=== PATIENT | female | born 1985 | race Asian ===

== ENCOUNTER 2021-08-09 15:40 | Outpatient (CLI) | payer BC | END 2021-08-09 15:41 | disposition home or self-care (01) | LOC: CSHULT 15:40 | PROVIDERS: ATTEND Family Medicine | DX: N92.6 Irregular menstruation, unspecified (principal) | CPT/HCPCS: 76856 ==

== ENCOUNTER 2023-07-14 20:58 | Inpatient (IN) | payer BC ==
[2023-07-14 22:02] LABS: #Basophils 0.08 10x3/uL (0.0-0.2); #Eosinphils 0.43 10x3/uL (0.0-0.5); #Monocytes 0.51 10x3/uL (0.0-1.1); #Neutrophils 5.44 10x3/uL (1.5-8.4); %Eosinophils 5.2 % (0.0-6.0); %Lymphocytes 21.1 % (18.0-47.0); %Monocytes 6.2 % (0.0-10.0); %Neutrophils 65.5 % (40.0-75.0); Hematocrit 35.4 % (34.9-44.5); Hemoglobin 11.9 g/dL (12.0-15.5); Mean Corpuscular HGB CONC 33.6 g/dL (32.0-36.0); Mean Corpuscular Volume 83.3 fl (81.6-98.3); Mean Platelet Volume 9.5 fl (7.4-10.4); Platelet Count 374 10x3/uL (150-450); RBC Distribution Width 13.8 % (11.5-14.5); Red Blood Cell (RBC) Count 4.25 10x6/uL (3.90-5.03); White Blood Cell (WBC) Count 8.3 10x3/uL (3.5-10.5)
[2023-07-14 22:13] LABS: ALT (SGPT) 24 U/L (8-55); AST (SGOT) 18 U/L (5-34); Albumin 3.4 g/dL (3.5-5.0); Alkaline Phosphatase 83 U/L (40-110); Anion Gap 15 mmol/L (10-20); BUN (Urea Nitrogen) 16 mg/dL (7.0-18.7); Bilirubin, Total 0.3 mg/dL (0.2-1.2); Calc. Creatinine Clearance 0 mL/min (70-130); Calcium 9.4 mg/dL (7.8-10.44); Carbon Dioxide 24 mmol/L (22-29); Chloride 106 mmol/L (98-107); Estimated GFR 120; Globulin 3.6 g/dL (2.4-3.5); Glucose 93 mg/dL (70-105); Potassium 3.9 mmol/L (3.5-5.1); Sodium 141 mmol/L (136-145)
[2023-07-14] MEDS ORDERED: Acetaminophen 500 MG TAB ONE (22:20)
[2023-07-14] MEDS ORDERED: Ketorolac Tromethamine 30 MG (1 mL) VIAL ONE (23:59)
[2023-07-15] MEDS ORDERED: Labetalol HCl 100 MG/20 ML VIAL ONE
[2023-07-15] MEDS ORDERED: Magnesium Sulfate 20 gm/500 ml 20 GM/500 ML BAG ONE (00:11)
[2023-07-15] MEDS ORDERED: Magnesium 2 GM/50 ML BAG (IN WATER) ONE (00:13)
[2023-07-15] MEDS ORDERED: Magnesium Sulfate 20 gm/500 ml 20 GM/500 ML BAG IVPB SCH (00:15)
[2023-07-15] MEDS: Lactated Ringer's 1,000 ML IV SCH (01:00)
[2023-07-15] MEDS: Magnesium Sulfate 20 gm/500 ml 20 GM/500 ML BAG IVPB SCH (01:00)
[2023-07-15 02:04] VITALS: BMI 25.0
[2023-07-15] MEDS ORDERED: Promethazine HCl 25 MG/ML VIAL IM PRN (02:07)
[2023-07-15] MEDS ORDERED: Ondansetron PF 4 MG/2 ML Vial IVP PRN (02:07)
[2023-07-15] MEDS ORDERED: hydrALAZINE 20 MG/ML VIAL SLOW IVP PRN ×3 (02:07)
[2023-07-15] MEDS ORDERED: Lorazepam 2 MG/ML VIAL SLOW IVP PRN (02:07)
[2023-07-15] MEDS ORDERED: Labetalol HCl 100 MG/20 ML VIAL SLOW IVP PRN ×2 (02:07)
[2023-07-15] MEDS ORDERED: Calcium Gluc 4.6 MEQ/10 ML (100 MG/ML) SLOW IVP PRN (02:07)
[2023-07-15] MEDS: NIFEdipine XL 30 MG ER.TAB PO SCH ×2 (03:27→08:34)
[2023-07-15 06:42] LABS: Creatinine, Urine 25.49 mg/dL (47-110); Protein, Urine Random Quant Less than 10 mg/dL (1-14)
[2023-07-15] MEDS: Acetaminophen 500 MG TAB PO PRN ×2 (08:34→20:17)
[2023-07-15] MEDS ORDERED: Metoclopramide HCl 10 MG (2 mL) VIAL IVP PRN (13:51)
[2023-07-15] MEDS: Acetaminophen 500 MG TAB PO SCH (14:00)
[2023-07-15] MEDS: diphenhydrAMINE 50 MG/ML VIAL IVP SCH (18:09)
[2023-07-16] MEDS: Docusate 100 MG CAP PO SCH ×2 (10:37→21:01)
[2023-07-17 07:44] VITALS: BP 116/64; TEMP 98.1
== END 2023-07-17 09:02 | disposition home or self-care (01) | DRG 776 ==
LOC: CSHERS 20:58 → CSHLD 07-15 01:47 → CSHPP 07-16 02:10
PROVIDERS: ADMIT Obstetrics & Gynecology; ATTEND Obstetrics & Gynecology
DX: O14.95 Unspecified pre-eclampsia, complicating the puerperium (principal); Z91.048 Other nonmedicinal substance allergy status; Z88.1 Allergy status to other antibiotic agents; Z79.899 Other long term (current) drug therapy; Z98.890 Other specified postprocedural states
CPT/HCPCS: 36415; 70450; 80053; 82570; 83735; 84156; 85025; J1885; J3475; J7120

== ENCOUNTER 2023-10-07 03:13 | Emergency (ER) | payer BC ==
[2023-10-07] MEDS ORDERED: Ondansetron PF 4 MG/2 ML Vial ONE (03:52)
[2023-10-07] MEDS ORDERED: Ketorolac Tromethamine 30 MG (1 mL) VIAL ONE (03:52)
[2023-10-07 04:11] LABS: BHCG - Serum Negative (NEGATIVE); Pregs Control Background? CLEAR/WHITE (CLR/WHITE); Pregs Control Bar Appear? YES (CONTROL BAR)
[2023-10-07 04:16] LABS: ALT (SGPT) 589 U/L (8-55); AST (SGOT) 481 U/L (5-34); Albumin 4.1 g/dL (3.5-5.0); Alkaline Phosphatase 215 U/L (40-110); Anion Gap 14 mmol/L (10-20); BUN (Urea Nitrogen) 17 mg/dL (7.0-18.7); Bilirubin, Total 1.5 mg/dL (0.2-1.2); Calc. Creatinine Clearance 0 mL/min (70-130); Calcium 9.8 mg/dL (7.8-10.44); Carbon Dioxide 27 mmol/L (22-29); Chloride 105 mmol/L (98-107); Estimated GFR 109; Globulin 3.4 g/dL (2.4-3.5); Glucose 110 mg/dL (70-105); Lipase 29 U/L (8-78); Potassium 3.6 mmol/L (3.5-5.1); Protein, Total 7.5 g/dL (6.0-8.3); Sodium 142 mmol/L (136-145)
[2023-10-07] MEDS ORDERED: Piperacillin/Tazobactam 4.5 GM VIAL ONE (04:20)
[2023-10-07 04:22] LABS: #Basophils 0.06 10x3/uL (0.0-0.2); #Eosinphils 0.19 10x3/uL (0.0-0.5); #Monocytes 0.44 10x3/uL (0.0-1.1); #Neutrophils 5.69 10x3/uL (1.5-8.4); %Basophils 0.8 % (0.0-2.0); %Eosinophils 2.4 % (0.0-6.0); %Monocytes 5.6 % (0.0-10.0); %Neutrophils 72.8 % (40.0-75.0); Hematocrit 38.6 % (34.9-44.5); Hemoglobin 12.9 g/dL (12.0-15.5); Mean Corpuscular HGB CONC 33.4 g/dL (32.0-36.0); Mean Corpuscular Hemoglobin 27.9 pg (27.0-33.0); Mean Corpuscular Volume 83.5 fL (81.6-98.3); Mean Platelet Volume 9.9 fL (7.4-10.4); Platelet Count 345 10x3/uL (150-450); Red Blood Cell (RBC) Count 4.62 10x6/uL (3.90-5.03); White Blood Cell (WBC) Count 7.8 10x3/uL (3.5-10.5)
[2023-10-07] MEDS ORDERED: Morphine 4 MG/ML VIAL ONE (05:11)
[2023-10-07 05:16] LABS: Bilirubin 3+ (Negative); Blood, Urine Negative (Negative); Clarity Clear (Clear); Glucose, Urine (Dipstick) Normal (Negative); Ketone, Urine Negative (Negative); Leukocyte 25 (Negative); Nitrite Negative (Negative); Protein, Urine (Dipstick) 30 mg/dl (Neg-Trace); Specific Gravity, Urine 1.015 (1.005-1.030); Urobilinogen 12 mg/dL (Less than 2); pH, Urine 6.5 (5.0-9.0)
[2023-10-07 05:23] LABS: Bacteria/HPF None Seen HPF (None Seen); CAUTI Indications for Culture Pelvic or flank pain; RBC/HPF 0-3 HPF (0-3); Squamous Epithelial 0-3 HPF (0-3); Urine Culture Reflex No No; WBC/HPF 0-3 HPF (0-3)
[2023-10-07] MEDS ORDERED: Magnevist 469MG/ML 20 ML VIAL ONE (13:37)
== END 2023-10-07 09:28 | disposition short-term general hospital (02) ==
LOC: CSHERS 03:13
DX: K80.50 Calculus of bile duct without cholangitis or cholecystitis without obstruction (principal); K80.20 Calculus of gallbladder without cholecystitis without obstruction; R79.89 Other specified abnormal findings of blood chemistry; K21.9 Gastro-esophageal reflux disease without esophagitis; Z79.899 Other long term (current) drug therapy
CPT/HCPCS: 36415; 74183; 76377; 76705; 80053; 81001; 83690; 84703; 85025; 96365; 96375; A9579; J1885; J2272; J2405; J2543